=== PATIENT | male | born 1960 | race Caucasian/White ===

== ENCOUNTER → 2019-08-10 13:35 | Outpatient (CLI) | payer OTHER, MEDICAID, SELFPAY | PROVIDERS: Family Provider Family Medicine; PCP Family Medicine; Visit Provider Physician Assistant | DX: J02.9 Acute pharyngitis, unspecified (principal) | CPT/HCPCS: 87070 ==

== ENCOUNTER → 2020-06-04 09:23 | Outpatient (CLI) | payer OTHER, MEDICAID, SELFPAY ==
--- NOTE | 2020-06-04 | DI.RAD.S_ITS ---
PROCEDURE: XR HAND RT MIN 3V INDICATIONS: BI HAND PAIN AND THUMB WEAKNESS TECHNIQUE: 4 views of the hand(s) acquired. COMPARISON: [facility], CR, XR HAND 3VW RT, 07/07/2017, 9:11. FINDINGS: Bones: No fracture. Chronic appearing ossicle projects at the volar soft tissues of the middle phalanx of the middle finger. Diffuse interphalangeal joint degeneration. Severe 1st CMC and triscaphe joint degeneration. Marginal lucency seen at the PIP joints of the ring and little finger as well as the 5th MCP joint. IMPRESSION: Chronic degenerative changes as above. 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 Dictated by: Philipp Hutson M.D. on 06/04/2020 at 10:42 Approved by: Philipp Hutson M.D. on 06/04/2020 at 10:47
--- NOTE | 2020-06-04 | DI.RAD.S_ITS ---
PROCEDURE: XR HAND LT MIN 3V INDICATIONS: BI HAND PAIN AND THUMB WEAKNESS TECHNIQUE: 4 views of the hand(s) acquired. COMPARISON: [facility], CR, XR HAND 3VW LT, 07/07/2017, 9:11. [facility], CR, XR HAND 3VW RT, 07/07/2017, 9:11. FINDINGS: Bones: No fracture. Severe 4th MCP joint degeneration. Chronic appearing ossicle projects at the base of the proximal phalanx of the ring finger, at the ulnar aspect. First CMC and triscaphe joint degeneration Soft tissues: No suspicious soft tissue calcifications. IMPRESSION: Diffuse left hand osteoarthritis as above. This is slightly progressed at the 4th MCP joint since 07/07/17. Dictated by: Philipp Hutson M.D. on 06/04/2020 at 12:27 Approved by: Philipp Hutson M.D. on 06/04/2020 at 12:30
== END ==
PROVIDERS: Family Provider Family Medicine; PCP Student in an Organized Health Care Education/Training Program; Referring Provider Student in an Organized Health Care Education/Training Program; Visit Provider Student in an Organized Health Care Education/Training Program
DX: M79.641 Pain in right hand (principal); M79.642 Pain in left hand; R29.898 Other symptoms and signs involving the musculoskeletal system; M18.0 Bilateral primary osteoarthritis of first carpometacarpal joints; M19.042 Primary osteoarthritis, left hand; M19.041 Primary osteoarthritis, right hand
CPT/HCPCS: 73130

== ENCOUNTER 2021-01-17 15:06 | Emergency (ER) | payer OTHER, MEDICAID, SELFPAY ==
[2021-01-17] VITALS (7 sets, daily range): BP systolic 168–208; BP diastolic 85–98; PULSE 55–66; RESP 16–17; TEMP 36.8; O2SAT 97–99; BMI 29.5
--- NOTE | 2021-01-17 15:16 | DI.CT.S_ITS ---
PROCEDURE: CT KIDNEY URETER BLADDER (KUB) INDICATIONS: Right flank pain concerned for stone TECHNIQUE: Noncontrast 5 mm thick sections acquired from the diaphragms to the symphysis. 5 mm thick coronal and sagittal reformats were then performed. For radiation dose reduction, the following was used: automated exposure control, adjustment of mA and/or kV according to patient size. COMPARISON: None. FINDINGS: Image quality: Excellent. Lung bases: Lung bases are clear. Heart size is normal. Urinary system: Both kidneys are normal in size. No kidney stones. No hydronephrosis or perinephric fat stranding. Both ureters appear non-dilated throughout their expected courses. Bladder wall thickness is normal; no calcified bladder stones. Other solid organs: Liver is normal in size. Gallbladder is unremarkable . Pancreas is normal in contours. Spleen is normal in size. No adrenal nodules. Peritoneum and bowel: Unenhanced bowel loops demonstrate normal wall thickness and caliber. No free fluid or air. Sigmoid diverticulosis without evidence of diverticulitis. Nodes and vessels: No retroperitoneal or mesenteric adenopathy by size criteria. Aorta and inferior vena cava are normal in caliber. Abdominal wall: No ventral hernias. Pelvis: No free pelvic fluid. No inguinal hernias or adenopathy. Bones: No suspicious bony lesions. No vertebral body compression fractures. IMPRESSION: 1. No evidence of renal stone, ureteral stone, or hydronephrosis. 2. Sigmoid diverticulosis without evidence of diverticulitis. Dictated by: Josse Sawyer M.D. on 01/17/2021 at 15:31 Approved by: Josse Sawyer M.D. on 01/17/2021 at 15:34
--- NOTE | 2021-01-17 15:20 | ED.BACK ---
HPI - Back Pain/Injury General Chief Complaint: Back Pain/Injury Stated Complaint: thinks passing kidney stones Time Seen by Provider: 01/17/21 15:08 Source: patient Mode of arrival: Ambulatory Limitations: no limitations History of Present Illness HPI Narrative: Patient is a 60-year-old male here for evaluation of left flank pain. He states he has passed 5 kidney stones in the past and in character this feels very much like his prior stones however it is up higher than normal. The symptoms have been off and on for the past 2 weeks. He saw his primary provider within the past 48 hours. He had a urinalysis done which he states showed some blood. At the time he was having minimal symptoms so he was not sent home with any medications. He states that his primary doctor thought he was having a stone. The symptoms have come and gone since then. He is here secondary to the length of time that he has had symptoms. Related Data Home Medications Medication Instructions Recorded Confirmed Acetaminophen/Aspirin/Caffei 1 tab PO PRN #0 12/27/11 (#EXCEDRIN 250 MG-250 MG-65 MG) atorvastatin PO 08/10/19 08/10/19 gabapentin 300 mg PO DAILY 01/17/21 01/17/21 meloxicam 15 mg PO DAILY 01/17/21 01/17/21 tramadol 50 mg PO DAILY 01/17/21 01/17/21 Allergies Allergy/AdvReac Type Severity Reaction Status Date / Time No Known Drug Allergies Allergy Verified 01/17/21 15:16 Review of Systems Constitutional Constitutional: Denies fever(s) Cardiovascular Cardiovascular: Denies chest pain and Denies dyspnea Respiratory Respiratory: Denies dyspnea Gastrointestinal Gastrointestinal: Denies abdominal pain, Denies change in bowel habits, Reports nausea and Denies vomiting Comments: Left flank pain Genitourinary Genitourinary: Denies dysuria Genitourinary: Denies dysuria Musculoskeletal Musculoskeletal: Reports back pain (Left flank) Integumentary/Breasts Skin/Breast: Denies rash Neurologic Neurologic: Denies behavioral changes Psychiatric Psychiatric: Denies behavioral changes Hematologic/Lymphatic On Anticoagulants: No Allergic/Immunologic Allergic/Immunologic: Denies urticaria Patient History Medical History Kidney stones Social History Smoking Status: Never smoker Smoking Status: Never smoker alcohol intake frequency: other Substance Use Type: does not use Exam Initial Vital Signs Initial Vital Signs: Vital Signs Pulse Rate 66 01/17/21 15:11 Pulse Oximetry 99 01/17/21 15:11 Const General: cooperative, healthy appearing and comfortable Limitations: mental status not altered HENMT Head: normal to inspection and atraumatic Resp Effort & Inspection: normal respiratory effort Auscultation: clear to auscultation bilaterally Cardio Rate: regular rate Rhythm: regular rhythm GI Inspection: non-distended Palpation: soft, No firm and No tender Back/Spine/Pelvis Back: No CVA tenderness Skin Lesions: no lesions Rashes: no rashes Neuro General: patient alert, patient awake and patient oriented x3 Cognition: normal cognition Speech: speech normal Extrem General: normal to inspection and capillary refill normal Psych Appearance: grossly normal and well kempt Course Orders Ordered: ED Orders 01/17/21 15:09 Basic Metabolic Panel Stat Complete Blood Count AUTO DIFF Stat 01/17/21 15:16 CT kidney ureter bladder (KUB) Stat Discontinued Medications Ketorolac Tromethamine (Ketorolac 60 Mg/2 Ml Vial) 30 mg IV NOW ONE Stop: 01/17/21 15:20 Last Admin: 01/17/21 15:31 Dose: 30 mg Documented by: Ondansetron HCl (Ondansetron 4 Mg/2 Ml Inj) 4 mg IV NOW ONE Stop: 01/17/21 15:20 Last Admin: 01/17/21 15:30 Dose: 4 mg Documented by: Vital Signs Vital signs: Vital Signs - 8 hr 01/17/21 15:11 01/17/21 15:12 01/17/21 15:14 Temperature 98.2 F Pulse Rate 66 66 63 Respiratory Rate 17 Blood Pressure 208/98 H 208/98 H Pulse Oximetry 99 98 98 01/17/21 15:35 01/17/21 15:37 Temperature Pulse Rate 58 L 60 Respiratory Rate Blood Pressure 196/98 H Pulse Oximetry 97 98 MDM - Back Pain/Injury Lab Data Attestation: I reviewed the patient's lab results. Result diagrams: 01/17/21 15:20 01/17/21 15:20 Labs: Lab Results 01/17/21 01/17/21 Range/Units 15:20 15:20 WBC 9.3 (4.5-11.0) X10^3/uL RBC 4.91 (4.5-5.9) X10^6/uL Hgb 14.1 (13.5-17.5) g/dL Hct 42.4 (41-53) % MCV 86.4 (80-100) fL MCH 28.6 (26-34) PG MCHC 33.1 (30-36) % RDW 13.5 (11.6-14.8) % Plt Count 264 (150-400) X10^3/uL Neut % (Auto) 62.6 (50-75) % Lymph % (Auto) 29.1 (25-40) % Williamson % (Auto) 5.9 (3-14) % Eos % (Auto) 1.5 L (2-4) % Baso % (Auto) 0.9 (0-2) % Neut # (Auto) 5800 (9900-4508) /uL Lymph # (Auto) 2700 (9802-4091) /uL Williamson # (Auto) 500 (0-900) /uL Eos # (Auto) 100 (0-450) /uL Baso # (Auto) 100 (0-100) /uL Sodium 141 (137-145) mmol/L Potassium 4.0 (3.4-5.1) mmol/L Chloride 107 (98-107) mmol/L Carbon Dioxide 26 (22-32) mmol/L BUN 21 H (9-20) mg/dL Creatinine 0.90 (0.66-1.25) mg/dL Estimated GFR > 60.0 (>60) mL/min BUN/Creatinine Ratio 23.3 H (6-22) Glucose 109 H (70-100) mg/dL Calcium 9.1 (8.4-10.2) mg/dL Urine Dip Bedside Urine Glucose Negative Bedside Urine Bilirubin - Negative Bedside Urine Ketone - Negative Urine Specific [place] 1.030 Bedside Urine Occult Blood - Negative Bedside Urine pH 6.0 Bedside Urine Protein - Negative Bedside Urine Urobilinogen - Negative Bedside Urine Nitrite - Negative Bedside Urine Leukocytes - Negative Esterase Imaging Data CT scan - abdomen/pelvis: Radiologist's Impression: [address] [id number] Scan ReportSigned Patient: Manuel Dias WMR#: [id number]: 2Acct:[id number]/Sex: 60 / MDate of Service: 01/17/21Loc: EDAccession Number: [id number] Procedure: CT kidney ureter bladder (KUB) Ordering Provider: Freeman Gaytan D.O. PROCEDURE: CT KIDNEY URETER BLADDER (KUB) INDICATIONS: Right flank pain concerned for stone TECHNIQUE: Noncontrast 5 mm thick sections acquired from the diaphragms to the symphysis. 5 mm thick coronal and sagittal reformats were then performed. For radiation dose reduction, the following was used: automated exposure control, adjustment of mA and/or kV according to patient size. COMPARISON: None. FINDINGS: Image quality: Excellent. Lung bases: Lung bases are clear. Heart size is normal. Urinary system: Both kidneys are normal in size. No kidney stones. No hydronephrosis or perinephric fat stranding. Both ureters appear non-dilated throughout their expected courses. Bladder wall thickness is normal; no calcified bladder stones. Other solid organs: Liver is normal in size. Gallbladder is unremarkable . Pancreas is normal in contours. Spleen is normal in size. No adrenal nodules. Peritoneum and bowel: Unenhanced bowel loops demonstrate normal wall thickness and caliber. No free fluid or air. Sigmoid diverticulosis without evidence of diverticulitis. Nodes and vessels: No retroperitoneal or mesenteric adenopathy by size criteria. Aorta and inferior vena cava are normal in caliber. Abdominal wall: No ventral hernias. Pelvis: No free pelvic fluid. No inguinal hernias or adenopathy. Bones: No suspicious bony lesions. No vertebral body compression fractures. IMPRESSION: 1. No evidence of renal stone, ureteral stone, or hydronephrosis. 2. Sigmoid diverticulosis without evidence of diverticulitis. Dictated by: Josse Sawyer M.D. on 01/17/2021 at 15:31 Approved by: Josse Sawyer M.D. on 01/17/2021 at 15:34 MDM Narrative Medical decision making narrative: Patient has a very benign exam. His labs are reassuring. His CT scan is reassuring. He has no rash concerning for zoster. No indication for surgical consultation. No indication for antibiotics. Unsure the exact etiology of his symptoms. He potentially could have passed a stone prior to the CT scan. Who will hold on further workup for now. He was given return precautions and follow-up instructions. He expressed understanding and agreement. Discharge Plan Departure Patient Disposition: Home Clinical Impression: Acute flank pain Instructions: DI for Flank Pain Activity Restrictions/Additional Instructions: Your labs and CT scan here in the emergency department are very reassuring. There were no kidney stones noted on the CT scan. There is no indication for any antibiotics. Recommend you continue all of your medications as directed. Contact your primary provider for a follow-up. Return to the emergency department for any new or worsening symptoms Prescriptions: No Action atorvastatin PO RF: 0 Acetaminophen/Aspirin/Caffei (#EXCEDRIN 250 MG-250 MG-65 MG) 1 tab PO PRN Qty: 0 RF: 0 meloxicam 15 mg tablet 15 mg PO DAILY RF: 0 tramadol 50 mg tablet 50 mg PO DAILY RF: 0 gabapentin 300 mg capsule 300 mg PO DAILY RF: 0 Referrals: Jacqueline Rod MD [Primary Care Provider] -
[2021-01-17 15:25] LABS: Add Manual Diff / Slide Review NO; Basophils Absolute Auto 100 /uL (0-100); Basophils Percent Auto 0.9 % (0-2); Eosinophils Absolute Auto 100 /uL (0-450); Eosinophils Percent Auto 1.5 % (2-4); Hematocrit 42.4 % (41-53); Hemoglobin 14.1 g/dL (13.5-17.5); Lymphocytes Absolute Auto 2700 /uL (1100-4500); Lymphocytes Percent Auto 29.1 % (25-40); Mean Corpuscular HGB Conc 33.1 % (30-36); Mean Corpuscular Hemoglobin 28.6 PG (26-34); Mean Corpuscular Volume 86.4 fL (80-100); Monocytes Absolute Auto 500 /uL (0-900); Monocytes Percent Auto 5.9 % (3-14); Neutrophils Absolute Auto 5800 /uL (1500-7000); Neutrophils Percent Auto 62.6 % (50-75); Platelet Count 264 X10^3/uL (150-400); Red Blood Cell Count 4.91 X10^6/uL (4.5-5.9); Red Cell Distribution Width 13.5 % (11.6-14.8); White Blood Cell Count 9.3 X10^3/uL (4.5-11.0)
[2021-01-17] MEDS: ONDANSETRON 4 MG/2 ML INJ IV (15:30)
[2021-01-17] MEDS: KETOROLAC 60 MG/2 ML VIAL 30 MG IV (15:31)
[2021-01-17 15:44] LABS: BUN Creatinine Ratio 23.3 (6-22); Blood Urea Nitrogen 21 mg/dL (9-20); Calcium 9.1 mg/dL (8.4-10.2); Carbon Dioxide 26 mmol/L (22-32); Chloride 107 mmol/L (98-107); Estimated Glomerular Filt Rate > 60.0 mL/min (>60); Glucose 109 mg/dL (70-100); HEMOLYSIS < 15 (0-50); Sodium 141 mmol/L (137-145)
== END 2021-01-17 16:22 | disposition home or self-care (01) ==
PROVIDERS: Emergency Provider Emergency Medicine; PCP Student in an Organized Health Care Education/Training Program
DX: M54.9 Dorsalgia, unspecified (principal)
CPT/HCPCS: 36415; 74176; 80048; 81003; 85025; 96374; 96375; 99284; J1885; J2405

== ENCOUNTER → 2024-06-14 10:22 | Outpatient (CLI) | payer OTHER, MEDICAID, SELFPAY ==
--- NOTE | 2024-06-14 10:27 | DI.RAD.S_ITS ---
PROCEDURE: XR FOOT RT MIN 3V INDICATIONS: CHRONIC FOOT PAIN, RIGHT TECHNIQUE: 3 views of the foot were acquired. COMPARISON: None. FINDINGS: Bones: No acute fractures or dislocations. No suspicious bony lesions. Moderate degenerative changes of 1st metatarsophalangeal joint. Mild scattered degenerative changes of the interphalangeal joints of the toes. Posterior and plantar calcaneal enthesophytes. Soft tissues: 3 mm linear radiopaque foreign body is seen in the soft tissues at the plantar lateral aspect of the midfoot. IMPRESSION: 1. Moderate 1st metatarsophalangeal osteoarthrosis. Mild degenerative changes in the toes. 2. Linear 3 mm radiopaque foreign body in the soft tissues at the plantar lateral midfoot. 3. Calcaneal enthesopathy. Approved by: Calderon Diaz M.D. on 06/14/2024 at 13:24
--- NOTE | 2024-06-14 10:27 | DI.RAD.S_ITS ---
PROCEDURE: XR SHOULDER RT MIN 2V INDICATIONS: CHRONIC RIGHT SHOULDER PAIN TECHNIQUE: Three views of the shoulder were acquired. COMPARISON: None. FINDINGS: Bones: No acute fractures or dislocations. No suspicious bony lesions. Visualized ribs appear intact. Moderate acromioclavicular joint osteoarthrosis. Soft tissues: No suspicious soft tissue calcifications. IMPRESSION: Moderate acromioclavicular joint osteoarthrosis. Approved by: Calderon Diaz M.D. on 06/14/2024 at 13:22
== END ==
LOC: RAD 10:25
PROVIDERS: PCP Family Medicine; Referring Provider Family Medicine; Visit Provider Family Medicine
DX: M19.011 Primary osteoarthritis, right shoulder (principal); M79.5 Residual foreign body in soft tissue; M19.071 Primary osteoarthritis, right ankle and foot; M77.31 Calcaneal spur, right foot; M25.511 Pain in right shoulder; M79.671 Pain in right foot; G89.29 Other chronic pain
CPT/HCPCS: 73030; 73630